=== PATIENT | male | born 1970 | race Caucasian/White ===

== ENCOUNTER 2022-04-02 17:45 | Emergency (ER) | payer SELFPAY ==
[~2022-04-02] VITALS: Ht 182.9 cm; Wt 111.1 kg
== END 2022-04-02 20:15 | disposition left against medical advice (07) ==
LOC: ER 17:45
DX: S69.92XA Unspecified injury of left wrist, hand and finger(s), initial encounter (principal); X58.XXXA Exposure to other specified factors, initial encounter; Z53.21 Procedure and treatment not carried out due to patient leaving prior to being seen by health care provider
CPT/HCPCS: 73130